=== PATIENT | male | born 1970 | race Caucasian/White ===

== ENCOUNTER 2016-07-27 11:59 | Emergency (ER) | payer BC, OTHER ==
[2016-07-27] MEDS ORDERED: ASPIRIN 81 MG TAB.CHEW PO ONE (12:05)
[2016-07-27] MEDS ORDERED: ONDANSETRON HCL/PF 2 MG/ML VIAL IV ONE (12:05)
[2016-07-27] MEDS ORDERED: MORPHINE SULFATE 4 MG/ML SYRG IV ONE (12:05)
[2016-07-27] MEDS ORDERED: MORPHINE SULFATE 4 MG/ML SYRG ONE (12:14)
[2016-07-27] MEDS ORDERED: ONDANSETRON HCL/PF 2 MG/ML VIAL ONE (12:14)
[2016-07-27] MEDS ORDERED: ASPIRIN 81 MG TAB.CHEW ONE (12:14)
[2016-07-27 12:21] LABS: Hematocrit 45.6 % (42.0-52.0); Hemoglobin 16.4 gm/dL (13.5-18.0); Mean Cell Volume 84.6 fl (78-100); Mean Corpuscular Hemoglobin 30.4 pg (27-31); Mean Platelet Volume 9.7 fl (6.0-9.5); Neutrophil % 69.4 % (42-75.0); Platelet Count 172 K/mm3 (150-450); Red Blood Count 5.39 M/mm3 (4.7-6.0); Red Cell Distribution Width 13.1 % (11.5-14.0); White Blood Count 7.2 K/mm3 (4.0-10.5)
[2016-07-27 12:28] LABS: INR 1.02 INR (0.90-1.10); Partial Thrombolplastin Time 27.3 Seconds (24-32); Prothrombin Time (Patient) 10.6 Seconds (9.4-11.4)
[2016-07-27 12:35] LABS: ALT 38 U/L (19-67); AST 26 U/L (0-48); Albumin * 4.1 gm/dl (3.4-5.0); Alkaline Phosphatase * 74 U/L (50-170); Anion Gap 11.6 mmol/L (6.8-13.8); BUN/Creatinine Ratio 9.9 (9.0-21.6); Bilirubin, Total 0.4 mg/dL (0.0-1.1); Blood Urea Nitrogen 12 mg/dL (6-23); Ca. Corrected For Albumin 8.5 mg/dL (8.4-10.2); Calcium * 8.9 mg/dL (7.9-10.9); Carbon Dioxide 28.3 mmol/L (24-32.6); Chloride 104 mmol/L (97-106); Glucose * 130 mg/dL (70-110); Magnesium 2.1 mg/dL (1.2-2.8); Potassium 3.9 mmol/L (3.4-4.6); Sodium 140 mmol/L (132-142); Total Protein 7.9 gm/dL (6.2-8.2); Troponin I Less than 0.017 ng/ml (0.00-0.10)
--- NOTE | 2016-07-27 13:45 | ERNOTE ---
Chest Pain/Cardiac HPI Chief Complaint: Chest Pain Source: patient Exam Limitations: no limitations Immunizations: IMMUNIZATION HX Immunizations Up to Date Yes History of Influenza Vaccine No Hx Pneumococcal Vaccination No Allergies/Adverse Reactions: Allergies gluten Allergy (Verified 07/27/16 12:05) Home Medications: HOME MEDICATIONS NK [No Home Medication] 07/27/16 [Last Taken Unknown] Narrative: Patient presents with left-sided chest pain with accompanying left-sided back pain as well, onset of the pain was a week to 10 days ago and has remained throughout the entire time. Waxing and waning in intensity. She rates the pain right now is perhaps a 3 on a scale 1-10 however it does get up to a 7. He denies diaphoresis, however he does have some shortness of breath that he attributes to deconditioning. Patient was extraordinarily nervous on initial examination and was hypertensive and tearful out of fear that perhaps he was having a heart attack. Timing: constant, intermittent Severity/Quality: mild Location: left chest Chest Pain Radiation: no radiation Activities at Onset: none Modifying Factors - Improves: Present: antacids Nitro Today/Relief: no nitro taken today Aspirin Treatment Today: 81 mg x 4, provided by ED Associated Symptoms: Present: shortness of breath Prior Chest Pain/Cardiac Workup: Reports: non-cardiac Review of Systems - Review of Systems Constitutional: Present: See HPI EYE: Present: no symptoms reported ENT: Present: no symptoms reported Respiratory: Present: See HPI Cardiology: Present: See HPI Gastrointestinal/Abdominal: Present: no symptoms reported Genitourinary: Present: no symptoms reported Musculoskeletal: Present: no symptoms reported Skin: Present: no symptoms reported Neurological: Present: no symptoms reported Endocrine: Present: no symptoms reported Hematologic/Lymphatic: Present: no symptoms reported Psych: Present: no symptoms reported - Patient's Past Medical History Patient History - Medical: No pertinent hx Patient History - Cardiac/Respiratory: Hypertension Patient History - Cancer: No Hx of Cancer Patient History - Surgical Procedures: Colonoscopy Patient History - Other: None - Social History Living Situations: home Psych History: No pertinent hx - Immunizations Immunizations Up to Date: Yes Hx Pneumococcal Vaccination: No History of Influenza Vaccine: No Physical Exam - Physical Exam General Appearance: Present: wd/wn, alert, mild distress Eye Exam: Normal inspection: bilateral, PERRL: bilateral Ears, Nose, Throat: Present: normal ENT inspection, H, normal pharynx Neck: Present: normal inspection, nontender Respiratory: Present: no respiratory distress, normal breath sounds, no accessory muscle use, lungs clear, chest tenderness Cardiovascular/Chest: Present: regular rate, rhythm, no murmur, normal peripheral pulses Gastrointestinal/Abdominal: Present: normal bowel sounds, nontender, nondistended, soft, no organomegaly Rectal Exam: Present: deferred Back Exam: Present: normal inspection, normal range of motion Extremity Exam: Present: normal inspection, normal range of motion, no edema, other - chronic back pain Neurological Exam: Present: alert, oriented, normal mood/affect Skin Exam: Present: normal color, warm/dry Lymphatic Exam: Present: no adenopathy ED Progress - Results and Orders Patient's Lab Results:: I have reviewed the patient's lab results. - Vital Signs Patient's Vital Signs:: I have reviewed the patient's vital signs. Vital Signs: Vital Signs 07/27/16 07/27/16 07/27/16 12:00 12:07 12:22 Temperature 37.0 C Pulse Rate 84 75 88 Respiratory 14 14 13 Rate Blood Pressure 190/110 167/107 153/108 O2 Sat by Pulse 96 95 96 Oximetry 07/27/16 07/27/16 07/27/16 12:53 13:10 13:24 Temperature Pulse Rate 74 74 80 Respiratory 14 15 7 L Rate Blood Pressure 136/84 151/91 138/84 O2 Sat by Pulse 96 95 97 Oximetry - EKG EKG: NSR - X-Ray X-Ray #1 X-Ray: chest Interpretation: Reviewed by me - Progress/Reassessment Chief Complaint: Chest Pain Progress:: Improved Plan - Plan Plan: Given that the patient has had the chest pain for 7-10 days and has a normal EKG , negative troponin and a negative chest x-ray unlikely that this is cardiac. We will arrange for an outpatient stress test to be done and patient will follow -up in either Dr. De Leon or Dr. George's office. Departure - Departure Clinical Impression: Chest wall pain Disposition: Home self-care Condition: Good Instructions: Chest Wall Pain, [id number]
[2016-07-27 13:50] VITALS: BP 149/87
== END 2016-07-27 14:01 | disposition home or self-care (01) ==
LOC: ER 11:59
DX: R07.89 Other chest pain (principal)